=== PATIENT | female | born 1990 | race Caucasian/White ===

== ENCOUNTER 2017-05-14 21:10 | Emergency (ER) | payer OTHER ==
[2017-05-14 21:16] VITALS: BP 134/72; PULSE 70; RESP 18; TEMP 97.9
--- NOTE | 2017-05-14 21:23 | ED ---
General Adult HPI - General Chief complaint: Extremity Injury, Upper Stated complaint: Hand Injury Time Seen by Provider: 05/14/17 21:18 Source: patient, RN notes reviewed Mode of arrival: ambulatory Limitations: no limitations - History of Present Illness Initial comments: 27 yo female presents to the ER with cc of right wrist pain. Patient presents for right wrist pain. Patient was playing fine and then fell onto her right wrist. Patient states she has pain with movement of the wrist. Full range of motion of the elbow and wrist though no numbness or tingling. Patient states her pain is moderate worse to movement. Patient denies any other injuries from the incident.Patient denies any recent fever, chills, shortness of breath, chest pain, back pain, abdominal pain, nausea vomiting, numbness or tingling, dysuria or hematuria, constipation or diarrhea, headaches or visual changes, or any other current symptoms. - Related Data Home Medications Medication Instructions Recorded Confirmed No Known Home Medications [No 05/14/17 05/14/17 Known Home Medications] Allergies Allergy/AdvReac Type Severity Reaction Status Date / Time bee pollen Allergy Unknown Verified 05/14/17 21:16 grass pollen-perennial rye, Allergy Unknown Verified 05/14/17 21:16 standar [grass poll-perennial rye,std] Penicillins Allergy Unknown Verified 05/14/17 21:16 Review of Systems ROS Statement: Those systems with pertinent positive or pertinent negative responses have been documented in the HPI. ROS Other: All systems not noted in ROS Statement are negative. Past Medical History Past Medical History: Asthma Additional Past Medical History / Comment(s): polycystic ovarian disease History of Any Multi-Drug Resistant Organisms: None Reported Past Surgical History: No Surgical Hx Reported Past Psychological History: Anxiety Smoking Status: Former smoker Past Alcohol Use History: Occasional Past Drug Use History: None Reported General Exam - General Exam Comments Initial Comments: General: The patient is awake and alert, in no distress, and does not appear acutely ill. Neck: The neck is supple, there is no tenderness or JVD. Cardiovascular: There is a regular rate and rhythm. No murmur, rub or gallop is appreciated. Respiratory: Lungs are clear to auscultation, respirations are non-labored, breath sounds are equal. No wheezes, stridor, rales, or rhonchi. Musculoskeletal: Sensation intact with 2+ pulses. Right lower extremity. Full range motion of the right elbow and right wrist right hand. Patient has mild diffuse tenderness to the right wrist. No deformity no swelling no ecchymosis. Neurological: CN II-XII intact, There are no obvious motor or sensory deficits. Coordination appears grossly intact. Speech is normal. Skin: Skin is warm and dry and no rashes or lesions are noted. Psychiatric: Normal mood and affect. Limitations: no limitations Course Vital Signs 05/14/17 21:14 Temperature 97.9 F Pulse Rate 70 Respiratory 18 Rate Blood Pressure 134/72 O2 Sat by Pulse 97 Oximetry Medical Decision Making - Medical Decision Making 27-year-old female presents emergency room chief complaint of right wrist pain. This time patient underwent an x-ray that is negative. This time patient appears to have a right wrist contusion. This time we discussed Motrin Tylenol for pain. We discussed return for follow-up outpatient family's questions. They stated they understood and they are in agreement plan. This and will be discharged. - Radiology Data Radiology results: report reviewed, image reviewed Disposition Clinical Impression: Contusion of right wrist, initial encounter Disposition: HOME SELF-CARE Condition: Serious Instructions: Wrist Injury (ED) Additional Instructions: Please use medication as discussed. Please follow up with family doctor if symptoms have not improved over the next two days. Please return to the emergency room if your symptoms increase or worsen or for any other concerns. Referrals: Jorje Granados MD [Primary Care Provider] - 1-2 days Time of Disposition: 21:50
--- NOTE | 2017-05-14 21:48 | XR ---
PROCEDURE: XR wrist complete RT - 4V DATE AND TIME: 05/14/2017 9:33 PM REFERRING PHYSICIAN: Linda García CLINICAL INDICATION: PHH, Pain after trauma TECHNIQUE: Department protocol - 4V COMPARISON: None FINDINGS: There is no fracture or malalignment. The soft tissues are unremarkable. IMPRESSION: NO ACUTE PROCESS.
== END 2017-05-14 22:00 | disposition home or self-care (01) ==
LOC: EC 21:10
DX: S60.211A Contusion of right wrist, initial encounter (principal); Z87.891 Personal history of nicotine dependence; Z88.0 Allergy status to penicillin; Z91.030 Bee allergy status; Z91.048 Other nonmedicinal substance allergy status; W19.XXXA Unspecified fall, initial encounter
CPT/HCPCS: 99283

== ENCOUNTER 2020-01-05 20:53 | Emergency (ER) | payer OTHER ==
[2020-01-05 21:05] VITALS: RESP 18; TEMP 98
[2020-01-05] MEDS ORDERED: KETOROLAC 30 MG/ML 1 ML VIAL IM STA (22:14)
--- NOTE | 2020-01-05 22:17 | ED ---
Upper Extremity HPI - General Chief Complaint: Extremity Injury, Upper Stated Complaint: RT arm pain Time Seen by Provider: 01/05/20 21:54 Source: patient Mode of arrival: ambulatory Limitations: no limitations - History of Present Illness Initial Comments: Patient is a 29-year-old female presenting to the emergency department with chief complaint of right shoulder pain. Patient reports yesterday she was lifting a large piece of Plexiglas over a counter top when she felt a sharp pain in the right shoulder. Patient reports she did not think much of it and took ibuprofen to alleviate some of the pain. 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 Patient reports the pain gradually increased. Patient reports the pain is not 10/10 and is starts near the posterior deltoid region and radiates distally to the elbow. Patient denies any numbness or tingling. States she is unable to abductor right shoulder above 70. Denies and chest pain shortness of breath. Denies any direct trauma to the region. - Related Data Home Medications Medication Instructions Recorded Confirmed No Known Home Medications 05/14/17 05/14/17 Allergies Allergy/AdvReac Type Severity Reaction Status Date / Time bee pollen Allergy Unknown Verified 01/05/20 21:05 grass pollen-perennial rye, Allergy Unknown Verified 01/05/20 21:05 standar [grass poll-perennial rye,std] Penicillins Allergy Unknown Verified 01/05/20 21:05 Review of Systems ROS Statement: Those systems with pertinent positive or pertinent negative responses have been documented in the HPI. ROS Other: All systems not noted in ROS Statement are negative. Past Medical History Past Medical History: Asthma Additional Past Medical History / Comment(s): polycystic ovarian disease History of Any Multi-Drug Resistant Organisms: None Reported Past Surgical History: No Surgical Hx Reported Past Psychological History: Anxiety Smoking Status: Current every day smoker Past Alcohol Use History: Occasional Past Drug Use History: Marijuana General Exam Limitations: no limitations General appearance: alert, in no apparent distress Head exam: Present: atraumatic, normocephalic, normal inspection Eye exam: Present: normal appearance, PERRL, EOMI Pupils: Present: normal accommodation ENT exam: Present: normal exam Neck exam: Present: normal inspection, full ROM Respiratory exam: Present: normal lung sounds bilaterally Cardiovascular Exam: Present: regular rate, normal rhythm, normal heart sounds Extremities exam: Present: normal inspection, tenderness (Posterior deltoid tenderness.), normal capillary refill, other (+2 ulnar and radial pulses bilaterally.). Absent: full ROM (Limited range of motion above 70 and right shoulder with abduction.) Back exam: Present: normal inspection, full ROM. Absent: tenderness Neurological exam: Present: alert, oriented X3 Psychiatric exam: Present: normal affect, normal mood Skin exam: Present: warm, dry, intact, normal color Course Vital Signs 01/05/20 01/05/20 20:59 23:06 Temperature 98 F 98 F Pulse Rate 70 88 Respiratory 18 18 Rate Blood Pressure 153/90 146/88 O2 Sat by Pulse 99 100 Oximetry Medical Decision Making - Medical Decision Making Patient is a 29-year-old female presenting to the emergency department with a chief complaint of right shoulder pain. Patient was carrying a large plexiglass yesterday when she developed the pain which gradually increased since yesterday. Patient has been taking [id number] analgesics with minimal improvement. Neck exam patient does have tenderness along the posterior deltoid and is not able to abductor right shoulder both 70. X-ray is unremarkable. I do suspect a rotator cuff injury. Patient does have positive empty can test. Patient was given Toradol in the ED with improvement in symptoms. Patient will be discharged with Tylenol 3 starter pack she was advised about the possible side effects of medication. She was also given a sling. Patient advised to follow with an screening specialist. Return parameters were thoroughly discussed with patient was understanding and agreeable. Case discussed with physician. Disposition Clinical Impression: Right shoulder injury, Rotator cuff injury Disposition: HOME SELF-CARE Condition: Stable Instructions (If sedation given, give patient instructions): Rotator Cuff Injury (ED) Additional Instructions: Take prescribed medication as directed. Follow with orthopedic doctor. Return to emergency department if symptoms worsen. Is patient prescribed a controlled substance at d/c from ED?: No Referrals: None,Stated [Primary Care Provider] - 1-2 days Barrett Roger MD [STAFF PHYSICIAN] - 1-2 days Time of Disposition: 22:52
--- NOTE | 2020-01-05 22:27 | XR ---
EXAMINATION TYPE: XR shoulder complete RT DATE OF EXAM: 01/05/2020 COMPARISON: NONE HISTORY: Right shoulder pain TECHNIQUE: 3 views FINDINGS: Joint spaces appear normal. I see no fracture nor dislocation. There are no pathologic calc ifications. IMPRESSION: Negative right shoulder exam.
[2020-01-05] MEDS ORDERED: ACET/COD 300 MG/30 MG STARTER PACK 6 TAB BTL PO STA (22:51)
[2020-01-05 23:07] VITALS: BP 146/88; PULSE 88
== END 2020-01-05 23:07 | disposition home or self-care (01) ==
LOC: EC 20:53
DX: S46.001A Unspecified injury of muscle(s) and tendon(s) of the rotator cuff of right shoulder, initial encounter (principal); F17.200 Nicotine dependence, unspecified, uncomplicated; Z88.0 Allergy status to penicillin; Z91.030 Bee allergy status; Z91.048 Other nonmedicinal substance allergy status; X58.XXXA Exposure to other specified factors, initial encounter
CPT/HCPCS: 73030; 99283; 96372; J1885